=== PATIENT | female | born 1985 | race Caucasian/White ===

== ENCOUNTER 2019-07-30 05:59 | Emergency (ER) | payer MEDICAID ==
[~2019-07-30] VITALS: Ht 172.7 cm; Wt 118.8 kg
[2019-07-30 06:06] VITALS: Ht 172.7 cm; Wt 118.8 kg
[2019-07-30 06:34] LABS: BASOPHIL % 0.4 % (0-2); PLATELET COUNT 244 x10^3mcL (130-400)
[2019-07-30 06:56] LABS: RED CELL DISTRIBUTION WIDTH 17.7 % (11.5-14.5)
[2019-07-30 08:09] VITALS: BP 118/64
== END 2019-07-30 08:09 | disposition home or self-care (01) ==
LOC: ED 05:59
PROVIDERS: Emergency Medicine
DX: O20.0 Threatened abortion (principal); Z3A.08 8 weeks gestation of pregnancy
CPT/HCPCS: Q0092

== ENCOUNTER 2019-08-01 02:11 | Emergency (ER) | payer MEDICAID ==
[~2019-08-01] VITALS: Ht 172.7 cm; Wt 113.4 kg
[2019-08-01 02:18] VITALS: Ht 172.7 cm; Wt 113.4 kg
[2019-08-01 03:56] VITALS: BP 155/79
== END 2019-08-01 03:56 | disposition other institution (70) ==
LOC: ED 02:11
DX: O20.0 Threatened abortion (principal); N83.209 Unspecified ovarian cyst, unspecified side
CPT/HCPCS: Q0092

== ENCOUNTER 2019-08-01 02:11 | Emergency (ER) | payer OTHER | END 2019-08-01 03:56 | disposition other institution (70) | LOC: ED 02:11 | DX: Z02.89 Encounter for other administrative examinations (principal) ==